=== PATIENT | male | born 1995 | race Asian ===

== ENCOUNTER 2023-10-08 18:13 | Emergency (ER) | payer MEDICAID ==
[~2023-10-08] VITALS: Ht 177.8 cm; Wt 88.6 kg
[2023-10-08 18:39] VITALS: BP 147/91; PULSE 107; RESP 18; TEMP 99.3; O2SAT 95
[2023-10-08] MEDS ORDERED: DIPH25CA83 PO (19:10)
[2023-10-08] MEDS ORDERED: HYDR28CR14 TOP (19:10)
[2023-10-08] MEDS ORDERED: PRED10TA23 PO (19:10)
[2023-10-08] MEDS: diphenhydrAMINE 50 mg/ml inj IM ONE (19:31)
[2023-10-08] MEDS: dexamethasone sod phosphate 10mg/ml inj IM STA (19:31)
[2023-10-08] MEDS: famotidine 20mg tablet PO ONE (19:32)
== END 2023-10-08 19:35 | disposition home or self-care (01) ==
LOC: ER 18:13
DX: L23.9 Allergic contact dermatitis, unspecified cause (principal)
CPT/HCPCS: 99283

== ENCOUNTER 2024-02-02 16:29 | Emergency (ER) | payer MEDICAID ==
[~2024-02-02] VITALS: Ht 177.8 cm; Wt 88.6 kg
[~2024-02-02 16:29] MED LIST: DIPH25CA83 PO; HYDR28CR14 TOP
[2024-02-02 16:50] VITALS: BP 137/79; PULSE 110; RESP 16; TEMP 97; O2SAT 97
== END 2024-02-02 18:33 | disposition home or self-care (01) ==
LOC: ER 16:30
DX: R07.81 Pleurodynia (principal); Z79.899 Other long term (current) drug therapy
CPT/HCPCS: 71045; 99283